=== PATIENT | male | born 1955 | race Caucasian/White ===

== ENCOUNTER 2018-01-03 05:35 | Emergency (ER) | payer OTHER ==
[2018-01-03 06:12] LABS: Urine Appearance CLOUDY; Urine Bilirubin NEGATIVE (NEG); Urine Blood 3+ (NEG); Urine Color RED; Urine Glucose NEGATIVE (NEG); Urine Protein 2+ (NEG); Urine Urobilinogen 0.2 mg/dL (0.2-1.0)
[2018-01-03 06:15] LABS: Urine Microscopic Reflex NO UMIC
[2018-01-03 06:17] LABS: Urine Bacteria <20 /HPF (NONE SEEN); Urine Culture Reflex Order NOT NEEDED; Urine RBC TNTC /HPF (NONE SEEN)
--- NOTE | 2018-01-03 07:35 | RAD REPORT ---
EXAM DESCRIPTION: CT - Stone Protocol - 01/03/2018 6:49 am CLINICAL HISTORY: Painless hematuria COMPARISON: None. TECHNIQUE: Axial 5 mm thick images were obtained without oral or IV contrast. The [id number] span s the entirety of the system including uppermost abdomen and lung bases. All CT scans are performed using dose optimization technique as appropriate and may include automated exposure control or mA/KV adjustment according to patient size. FINDINGS: No hydronephrosis and no obstructing calculus. In the anterior mid to lower pole of the le ft kidney there is a large lobulated 5.3 centimeter solid mass. Central calcifications are present. T he mass is isodense to renal parenchyma. Full size of the mass can be determined with contrast imagin g at the time of staging. No contralateral right renal mass suspected. This could also be further nae luated at time of contrast staging imaging. Additional isodense masses and pyelonephritis are not exc luded on noncontrast imaging. No urinary bladder suspicious finding. Prostate gland and seminal vesic les are normal range. Imaged portions of the liver, spleen and pancreas show no suspicious findings on non-contrast imaging . No gallbladder or biliary tree abnormality identified. No significant adrenal finding. No acute bowel finding identified. The appendix is normal. The patient has extensive diverticulosis. No acute diverticulitis findings. No abnormal lymphadenopathy identifiable. Patient does have a few periaortic lymph nodes measuring we ll under 1 centimeter in size. No free air or pneumatosis. No acute inflammatory stranding. Disc and bony degenerative changes are present. Patient has a mixed lytic and sclerotic process invol ving the S1 and S2 bodies and left sacral ala. There is questionable cortical disruption along the an terior margin of the left-side S1-S2 foramen. No lytic or sclerotic changes in the ilium at the SI vianca int. Moderate-sized bilateral fat filled inguinal hernias are present. Findings telephoned to the referring clinician 7:26 a.m.. IMPRESSION: Large 5.3 cm left renal mass. Renal cell carcinoma is by far the single most likely etio logy. A few small, less than 1 centimeter periaortic lymph nodes are seen. No enlarged or grossly pathologi c lymph nodes. Mixed lytic and sclerotic changes to the left sacral ala and the S1-S2 bodies. In the setting of a hi ghly probable malignant mass, bony metastatic disease cannot be excluded. Fibrous dysplasia or Paget' s disease would be additional considerations. Patient has no comparison at this facility.
[2018-01-03 07:56] LABS: Absolute Lymphocytes (CBC) 1.6 K/uL (0.7-4.9); Absolute Monocytes 0.7 K/uL (0.1-1.3); Basophils % 1.4 % (0-1.3); Eosinophils % 4.3 % (0-4.4); Lymphocytes % 20.6 % (15.3-44.8); MCH 31.1 pg (27.0-35.0); MCV 88.3 fL (80-100); MPV 7.4 fL (7.6-11.3); Monocytes % 8.9 % (3.3-12.3); RBC Red Blood Cell Count 4.64 M/uL (4.33-5.43)
[2018-01-03 08:08] LABS: Protime INR 0.97
[2018-01-03 08:13] LABS: Albumin 3.6 g/dL (3.4-5.0); Bilirubin Total 0.4 mg/dL (0.2-1.0); Potassium 4.2 mmol/L (3.5-5.1); Protein, Total 7.1 g/dL (6.4-8.2)
--- NOTE | 2018-01-03 08:34 | EDPHYS ---
Physician Documentation [facility] Name: Nelson Sanchez Age: 62 yrs Sex: Male : 1955 Arrival Date: 01/03/2018 Time: 05:38 Bed 18 Private MD: ED Physician Eugene Denny HPI: 01/03 06:19 This 62 yrs old Male presents to ER via Ambulatory with complaints of Blood jmm in urine. 06:19 The patient presents with urinary symptoms. Onset: The symptoms/episode began/occurred jmm acutely, last night. Associated signs and symptoms: Pertinent positives: hematuria, Pertinent negatives: abdominal pain, fever, nausea, vomiting. This is a 62 year old male with a history of HLP, HTN that presents to the ED with gross hematuria beginning earlier this evening. Patient denies fever, vomiting, or abdominal pain. . Historical: - Allergies: 05:58 PENICILLINS; fc - Home Meds: 05:58 rosuvastatin 10 mg oral tab 1 tab once daily [Active]; metoprolol tartrate 50 mg Oral fc tab 1 tab once daily [Active]; olmesartan oral 40 mg oral 1 tab once daily [Active]; - PMHx: 05:58 Hypertension; High Cholesterol; fc - PSHx: 05:58 heart link to monitor heart; Hernia repair; bileratel feet; eye surg; Tonsillectomy; fc lower back fatty tissue removed; - Immunization history:: Last tetanus immunization: up to date. - Social history:: Smoking status: Patient/guardian denies using tobacco. - Ebola Screening: : Patient negative for fever greater than or equal to 101.5 degrees Fahrenheit, and additional compatible Ebola Virus Disease symptoms Patient denies exposure to infectious person Patient denies travel to an Ebola-affected area in the 21 days before illness onset. ROS: 06:19 Constitutional: Negative for fever, chills, and weight loss, Cardiovascular: Negative jmm for chest pain, palpitations, and edema, Respiratory: Negative for shortness of breath, cough, wheezing, and pleuritic chest pain, Abdomen/GI: Negative for abdominal pain, nausea, vomiting, diarrhea, and constipation. 06:19 : Positive for hematuria. 06:19 All other systems are negative. Exam: 06:19 Head/Face: atraumatic. Eyes: EOMI, no conjunctival erythema appreciated Chest/axilla: [facility] Normal chest wall appearance and motion. Cardiovascular: Regular rate and rhythm. No edema appreciated Respiratory: Normal respirations, no respiratory distress appreciated 06:19 Constitutional: The patient appears in no acute distress, alert, awake. 06:19 Abdomen/GI: Inspection: obese Bowel sounds: normal, Palpation: abdomen is soft and non-tender, in all quadrants. 06:19 Back: CVA tenderness, is absent, is noted bilaterally. 06:19 Skin: Appearance: Color: normal in color. 06:19 Neuro: Orientation: is normal, Mentation: is normal, Memory: is normal, Gait: is steady. 06:19 Psych: Behavior/mood is pleasant, cooperative. Vital Signs: 05:40 BP 130 / 83; Pulse 82; Resp 20; Temp 98.5(O); Pulse Ox 98% on R/A; Weight 104.33 kg fc (R); Height 5 ft. 11 in. (180.34 cm) (R); Pain 0/10; 07:47 BP 125 / 82; Pulse 64; Resp 16; Pulse Ox 95% on R/A; Pain 0/10; em 08:45 BP 134 / 89; Pulse 74; Resp 18; Pulse Ox 95% on R/A; Pain 0/10; em 05:40 Body Mass Index 32.08 (104.33 kg, 180.34 cm) fc MDM: 06:18 Patient medically screened. [facility] 08:33 Data reviewed: vital signs, nurses notes. [facility] 08:39 Data reviewed: lab test result(s), radiologic studies, CT scan. Counseling: I had a [facility] detailed discussion with the patient and/or guardian regarding: the historical points, exam findings, and any diagnostic results supporting the discharge/admit diagnosis, lab results, radiology results, the need for outpatient follow up, to return to the emergency department if symptoms worsen or persist or if there are any questions or concerns that arise at home. ED course: I discussed the patient with Dr. Benson whom advised to discharge the patient and follow up with him in clinic tomorrow. Patient is alert, non toxic in appearance, h/h normal. Patient given strict return precautions. Family understood and agrees with the plan of care. . 01/03 06:03 Order name: UA; Complete Time: 06:18 ms 01/03 06:03 Order name: Urine Microscopic Only; Complete Time: 06:18 ms 01/03 06:03 Order name: Urine Culture ms 01/03 07:33 Order name: CBC with Diff; Complete Time: 08:05 [facility] 01/03 07:33 Order name: CMP; Complete Time: 08:15 [facility] 08 07:33 Order name: Ptt, Activated; Complete Time: 08:15 [facility] 01/03 06:19 Order name: Stone Protocol CT; Complete Time: 07:41 [facility] 01/03 07:33 Order name: Saline Lock; Complete Time: 07:47 [facility] 01/03 07:33 Order name: PT-INR; Complete Time: 08:15 [facility] Administered Medications: No medications were administered Disposition: 01/04 04:43 Co-signature as Attending Physician, Eugene Denny MD. Disposition: 01/03/18 08:34 Discharged to Home. Impression: Hematuria, unspecified, Left Renal Mass. - Condition is Stable. - Discharge Instructions: Hematuria, Adult, Renal Mass. - Medication Reconciliation Form, Thank You Letter, Antibiotic Education, Prescription Opioid Use form. - Follow up: Sheila Benson MD; When: Tomorrow; Reason: Recheck today's complaints, Continuance of care, Re-evaluation by your physician. - Notes: Please drink plenty of fluids. Follow up with Dr. Benson tomorrow. Return to the ED if you develop flank pain, vomiting, fever, increased bleeding. Signatures: Dispatcher [employer] EDMS Mateo Villarreal PA PA jmm Chretien, Felicia, RN RN Santi Mao, SALES COMPENSATION ANALYST SALES COMPENSATION ANALYST Eugene Denny MD MD Corrections: (The following items were deleted from the chart) 01/03 08:48 08:34 01/03/2018 08:34 Discharged to Home. Impression: Hematuria, unspecified; Left em Renal Mass. Condition is Stable. Forms are Medication Reconciliation Form, Thank You Letter, Antibiotic Education, Prescription Opioid Use. Follow up: Sheila Benson; When: Tomorrow; Reason: Recheck today's complaints, Continuance of care, Re-evaluation by your physician. [facility]
--- NOTE | 2018-01-03 08:34 | ER ---
Nurse's Notes [facility] Name: Nelson Sanchez Age: 62 yrs Sex: Male : 1955 Arrival Date: 01/03/2018 Time: 05:38 Bed 18 Private MD: Diagnosis: Hematuria, unspecified;Left Renal Mass Presentation: 01/03 05:40 Presenting complaint: Patient states: that at 1800 yesterday he started to have blood fc in his urine. It has not stopped. Denies any pain or discomfort. Transition of care: patient was not received from another setting of care. Onset of symptoms was January 02, 2018 at 18:00. Risk Assessment: Do you want to hurt yourself or someone else? Patient reports no desire to harm self or others. Initial Sepsis Screen: Does the patient meet any 2 criteria? No. Patient's initial sepsis screen is negative. Does the patient have a suspected source of infection? No. Patient's initial sepsis screen is negative. Care prior to arrival: None. 05:40 Method Of Arrival: Ambulatory 05:40 Acuity: CARLOS 3 fc Historical: - Allergies: 05:58 PENICILLINS; fc - Home Meds: 05:58 rosuvastatin 10 mg oral tab 1 tab once daily [Active]; metoprolol tartrate 50 mg Oral fc tab 1 tab once daily [Active]; olmesartan oral 40 mg oral 1 tab once daily [Active]; - PMHx: 05:58 Hypertension; High Cholesterol; fc - PSHx: 05:58 heart link to monitor heart; Hernia repair; bileratel feet; eye surg; Tonsillectomy; fc lower back fatty tissue removed; - Immunization history:: Last tetanus immunization: up to date. - Social history:: Smoking status: Patient/guardian denies using tobacco. - Ebola Screening: : Patient negative for fever greater than or equal to 101.5 degrees Fahrenheit, and additional compatible Ebola Virus Disease symptoms Patient denies exposure to infectious person Patient denies travel to an Ebola-affected area in the 21 days before illness onset. Screenin:55 Abuse screen: Denies threats or abuse. Nutritional screening: No deficits noted. fc Tuberculosis screening: No symptoms or risk factors identified. Fall Risk None identified. Assessment: 06:27 General: Appears in no apparent distress. comfortable, Behavior is calm, cooperative, ao appropriate for age. Pain: Denies pain. Neuro: Level of Consciousness is awake, alert, obeys commands, Oriented to person, place, time, situation, Appropriate for age Moves all extremities. Full function Speech is normal. Cardiovascular: Capillary refill < 3 seconds Patient's skin is warm and dry. Respiratory: Airway is patent Respiratory effort is even, unlabored, Respiratory pattern is regular, symmetrical. GI: Abdomen is non-distended. : No signs and/or symptoms were reported regarding the genitourinary system. Urine is blood tinged. EENT: No signs and/or symptoms were reported regarding the EENT system. Derm: Skin is intact, Skin is pink, warm \\T\\ dry. normal, Skin temperature is warm. Musculoskeletal: Circulation, motion, and sensation intact. Range of motion: intact in all extremities. 07:21 General: Appears in no apparent distress. comfortable, Behavior is calm, cooperative. em Pain: Denies pain. Neuro: Level of Consciousness is awake, alert, obeys commands, Oriented to person, place, time, situation. Cardiovascular: Capillary refill < 3 seconds Patient's skin is warm and dry. Respiratory: Airway is patent Respiratory effort is even, unlabored, Respiratory pattern is regular, symmetrical. GI: Abdomen is round non-distended. : Reports bloody urine described as "wine color" that started 1800 yesterday Denies pain with urination. Derm: Skin is intact, Skin is pink, warm \\T\\ dry. Skin temperature is warm. Musculoskeletal: Circulation, motion, and sensation intact. Range of motion: intact in all extremities. 07:25 Reassessment: I agree with previous assessment. hb 08:13 Reassessment: Patient appears in no apparent distress at this time. Patient and/or em family updated on plan of care and expected duration. Pain level reassessed. Patient is alert, oriented x 3, equal unlabored respirations, skin warm/dry/pink. coffee given to pt Patient denies pain at this time. Vital Signs: 05:40 BP 130 / 83; Pulse 82; Resp 20; Temp 98.5(O); Pulse Ox 98% on R/A; Weight 104.33 kg fc (R); Height 5 ft. 11 in. (180.34 cm) (R); Pain 0/10; 07:47 BP 125 / 82; Pulse 64; Resp 16; Pulse Ox 95% on R/A; Pain 0/10; em 08:45 BP 134 / 89; Pulse 74; Resp 18; Pulse Ox 95% on R/A; Pain 0/10; em 05:40 Body Mass Index 32.08 (104.33 kg, 180.34 cm) ED Course: 05:38 Patient arrived in ED. es 05:40 Arm band placed on Patient placed in an exam room, on a stretcher. fc 05:54 Triage completed. fc 05:55 Patient has correct armband on for positive identification. Bed in low position. Call light in reach. 05:55 No provider procedures requiring assistance completed. fc 06:03 Rahul Caal, RN is Primary Nurse. ao 06:10 Mateo Villarreal PA is PHCP. jmm 06:10 Eugene Denny MD is Attending Physician. jmm 06:41 Patient moved to OK via wheelchair. kw1 06:48 CT completed. Patient tolerated procedure well. Patient moved back from [place]. kw1 06:[address] In Process Unspecified. EDMS 07:02 Report given to CARRIE Hancock. ao 07:11 Santi Mao LVN is Primary Nurse. em 07:40 Initial lab(s) drawn, by [facility], sent to lab. Inserted saline lock: 20 gauge in right em antecubital area, using aseptic technique. Blood collected. 08:33 Sheila Benson MD is Referral Physician. jmm 08:46 IV discontinued, intact, bleeding controlled, No redness/swelling at site. Pressure em dressing applied. Administered Medications: No medications were administered Outcome: 08:34 Discharge ordered by . jmm 08:47 Discharged to home ambulatory, with family. em 08:47 Condition: good 08:47 Discharge instructions given to patient, Instructed on discharge instructions, follow up and referral plans. Demonstrated understanding of instructions, follow-up care. 08:48 Patient left the ED. em Signatures: Dispatcher [employer] EDMateo Todd PA PA jmm Salyer, Edna es Chretien, Felicia, RN RN Santi Mao LVN LVN em Rahul Caal RN RN ao Baxter, Heather, RN RN Gloria Mendoza kw1
== END 2018-01-03 08:48 | disposition home or self-care (01) ==
LOC: ER 05:35
DX: N28.9 Disorder of kidney and ureter, unspecified (principal); I10 Essential (primary) hypertension; E78.00 Pure hypercholesterolemia, unspecified; Z88.0 Allergy status to penicillin
CPT/HCPCS: 36415; 74176; 76377; 80053; 81003; 81015; 85025; 85610; 85730; 87086; 87088; 99284